=== PATIENT | female | born 1995 | race Two or more races ===

== ENCOUNTER → 2025-01-19 | Emergency (ER) | payer OTHER ==
[~2025-01-19] VITALS: Ht 170.2 cm; Wt 70.3 kg
[2025-01-20 01:42] LABS: BASO % 0.6 % (0.1-1.2); EOS # 0.15 (0.04-0.54); EOS % 2.1 % (0.7-7.0); LYMPH # 2.52 (1.18-3.74); LYMPH % 35.8 % (19.3-53.1); MEAN PLATELET VOLUME 10.40 fl (9.4-12.4); MONO # 1.24 (0.24-0.82); NEUT # 3.07 (1.56-6.13); NEUT % 43.6 % (34.0-71.1); RED CELL DISTRIBUTION WIDTH 12.1 % (11.6-14.4)
[2025-01-20 01:47] LABS: INR 1.04; LYMPHOCYTE MAN 40.0 %; MONO % 17.6 % (4.7-12.5); MONOCYTE MAN 15.0 %; NEUTROPHILS MAN 45.0 %
[2025-01-20 02:02] LABS: ALT/SGPT 21 U/L (12-78); AST/SGOT 19 U/L (15-37); BILIRUBIN TOTAL 0.21 mg/dL (0.3-1.2); BUN CREA RATIO 16 (7.0-25.0); CREATININE SERUM 1.04 mg/dL (0.55-1.02); GFR 62.65; GLOBULINA 3.6 G/DL (2.4-3.5); GLUCOSE FASTING 97 mg/dL (65-100); OSMOLALITY SERUM 286 MOSM/KG (275-295)
[2025-01-20 02:11] LABS: HCG QUANTITATIVE < 1 mUI/mL (1-3)
== END | disposition left against medical advice (07) ==
LOC: ER 21:16
PROVIDERS: General Practice
DX: O20.8 Other hemorrhage in early pregnancy (principal); Z3A.01 Less than 8 weeks gestation of pregnancy; Z91.013 Allergy to seafood

== ENCOUNTER 2025-01-21 09:00 | Emergency (ER) | payer OTHER ==
[~2025-01-21] VITALS: Ht 170.2 cm; Wt 70.8 kg
[2025-01-21 09:17] VITALS: BP 100/60; O2SAT 100
[2025-01-21] MEDS ORDERED: 0.9 % SODIUM CHLORIDE 1,000 ML IV ONE (10:00)
[2025-01-21 10:04] LABS: BASO % 0.8 % (0.1-1.2); EOS # 0.19 (0.04-0.54); EOS % 2.9 % (0.7-7.0); LYMPH # 1.79 (1.18-3.74); LYMPH % 27.7 % (19.3-53.1); MEAN PLATELET VOLUME 10.00 fl (9.4-12.4); MONO # 1.04 (0.24-0.82); NEUT # 3.37 (1.56-6.13); NEUT % 52.2 % (34.0-71.1); RED CELL DISTRIBUTION WIDTH 12.0 % (11.6-14.4)
[2025-01-21 10:07] LABS: MONO % 16.1 % (4.7-12.5)
[2025-01-21 10:37] LABS: INR 1.02
[2025-01-21 10:49] LABS: ALT/SGPT 23 U/L (12-78); AST/SGOT 18 U/L (15-37); BILIRUBIN TOTAL 0.55 mg/dL (0.3-1.2); BUN CREA RATIO 27 (7.0-25.0); CREATININE SERUM 0.83 mg/dL (0.55-1.02); GFR 81.27; GLOBULINA 3.7 G/DL (2.4-3.5); GLUCOSE FASTING 83 mg/dL (65-100); OSMOLALITY SERUM 284 MOSM/KG (275-295)
[2025-01-21 11:05] LABS: HCG QUANTITATIVE < 1 mUI/mL (1-3)
[2025-01-21 14:08] LABS: URINE APPEARANCE Clear; URINE BILIRRUBIN Negative (NEGATIVE); URINE BLOOD Large; URINE COLOR Dark Yellow; URINE GLUCOSE Negative (NEGATIVE); URINE KETONE Trace (NEGATIVE); URINE LEUKOCYTE Trace; URINE NITRATE Negative; URINE PROTEIN 30 (NEGATIVE); URINE UROBILINOGEN 1.0 E.U./dl
[2025-01-21 14:10] LABS: URINE BACTERIA 583.1 uL (0.0-1933); URINE EPITHELIAL CELLS 23.9 uL (0.0-38.8); URINE RBC 1552.6 uL (0.0-20.8); URINE WBC 26.1 uL (0.0-23.2)
[2025-01-21 14:18] LABS: URINE CAST 0.87 uL (0.0-1.40)
== END 2025-01-21 14:31 | disposition home or self-care (01) ==
LOC: ER 09:01
DX: O20.8 Other hemorrhage in early pregnancy (principal); Z3A.01 Less than 8 weeks gestation of pregnancy; N93.9 Abnormal uterine and vaginal bleeding, unspecified; Z91.013 Allergy to seafood

== ENCOUNTER → 2025-01-23 | Day surgery (SDC) | payer OTHER ==
[~2025-01-23] MED LIST: CEFAZOLIN SODIUM 1,000 MG VIAL ONE; OXYTOCIN 10 UNITS/ML VIAL ONE; POVIDONE-IODINE 118 ML BOTT TOP ONE
== END | disposition home or self-care (01) ==
LOC: CIR.AMB 10:30
PROVIDERS: ATTEND Specialist
DX: O02.1 Missed abortion (principal); Z91.013 Allergy to seafood